=== PATIENT | female | born 1985 | race Hispanic/Latino ===

== ENCOUNTER 2025-05-14 20:44 | Emergency (ER) | payer OTHER ==
[2025-05-14] MEDS ORDERED: IBUPROFEN 400 MG TAB ONE (22:50)
[2025-05-14] MEDS ORDERED: AMOX/K CLAV 875 MG TAB ONE (22:50)
[2025-05-14] MEDS ORDERED: TDAP (DIPHTH,PERTUSS(ACELL),TET VAC) 0.5 ML VIAL IMVAC ONE (22:50)
--- NOTE | 2025-05-14 23:50 | ER ---
Nurse's Notes [facility] Name: Miracle Gonzalez Age: 39 yrs Sex: Female : 1985 Arrival Date: 05/14/2025 Time: 20:44 Bed 11 Private MD: Diagnosis: Puncture wound without foreign body of forearm-left Presentation: 05/14 21:10 Chief complaint: Patient states: [employer] FIGHTING, [employer] BIT dd2 RT FOREARM. PT REPORTS VACCINES UPDATED FOR BOTH DOGS. Coronavirus screen: At this time, the client does not indicate any symptoms associated with coronavirus-19. Ebola Screen: No symptoms or risks identified at this time. Initial Sepsis Screen: Does the patient meet any 2 criteria? No. Patient's initial sepsis screen is negative. Does the patient have a suspected source of infection? No. Patient's initial sepsis screen is negative. Risk Assessment: Do you want to hurt yourself or someone else? Patient reports no desire to harm self or others. Onset of symptoms was May 14, 2025. 21:10 Method Of Arrival: Ambulatory dd2 21:10 Acuity: DELORES 3 dd2 Triage Assessment: 21:17 Bite description: bite sustained to palmar aspect of right forearm by a dog, animal dd2 information: vaccination(s) is current. General: Appears in no apparent distress. uncomfortable, Behavior is calm, cooperative, appropriate for age. Pain: Complains of pain in palmar aspect of right forearm. Injury Description: Bite sustained to palmar aspect of right forearm caused by a dog. Historical: - Allergies: 21:17 Morphine; dd2 - PMHx: 21:17 SVT; dd2 - PSHx: 21:17 Tonsillectomy; dd2 - Immunization history:: Adult Immunizations not up to date, Last tetanus immunization: unknown. - Social history:: Smoking status: Patient denies any tobacco usage or history of. Screenin:35 [facility] ED Fall Risk Assessment (Adult) History of falling in the last 3 months, br2 including since admission No falls in past 3 months (0 pts) Confusion or Disorientation No (0 pts) Intoxicated or Sedated No (0 pts) Impaired Gait No (0 pts) Mobility Assist Device Used No (0 pt) Altered Elimination No (0 pt) Score/Fall Risk Level 0 - 2 = Low Risk Oriented to surroundings. Abuse screen: Denies threats or abuse. Denies injuries from another. Nutritional screening: No deficits noted. Tuberculosis screening: No symptoms or risk factors identified. Assessment: 22:35 Reassessment: Patient and/or family updated on plan of care and expected duration. Pain br2 level reassessed. Patient is alert, oriented x 3, equal unlabored respirations, skin warm/dry/pink. General: Appears in no apparent distress. comfortable, Behavior is calm, cooperative. Neuro: Goodman Agitation-Sedation Scale (RASS): 0 - Alert and Calm Level of Consciousness is awake, alert, obeys commands, Oriented to person, place, time, situation. Derm: Skin PUNCTURE Skin is clammy, Skin is pink, warm \T\ dry. Skin temperature is warm Wound noted palmar aspect of left forearm. 22:35 Reassessment: PT STATES [place] [employer] NOTIFIED. br2 23:30 Reassessment: Patient and/or family updated on plan of care and expected duration. Pain br2 level reassessed. Patient is alert, oriented x 3, equal unlabored respirations, skin warm/dry/pink. Patient states feeling better. Patient states symptoms have improved. 05/15 00:03 Reassessment:. br2 Vital Signs: 05/14 21:10 BP 140 / 94; Pulse 94; Resp 16; Temp 97.7; Pulse Ox 98% ; Weight 113.4 kg; Height 5 ft. dd2 5 in. ; Pain 6/10; 05/15 00:00 BP 129 / 91; Pulse 86; Resp 18; Temp 97.1; Pulse Ox 99% ; Pain 4/10; br2 05/14 21:10 Body Mass Index 41.60 (113.40 kg, 165.1 cm) dd2 05/14 21:10 Pain Scale: Adult dd2 05/15 00:00 Pain Scale: Adult br2 ED Course: 05/14 20:47 Patient arrived in ED. im 21:03 Marcelino Martinez PA-C is PHCP. cp 21:03 Marcelino Cueto MD is Attending Physician. cp 21:17 Triage completed. dd2 21:17 Arm band placed on right wrist. dd2 22:35 Bed in low position. Call light in reach. Side rails up X 1. Provided Education on: br2 plan of care. 22:47 XRAY Forearm LEFT In Process Unspecified. EDMS 23:45 Isi Horn, NABIL is Primary Nurse. br2 05/15 00:02 No provider procedures requiring assistance completed. Patient did not have IV access br2 during this emergency room visit. Administered Medications: 05/14 22:57 Drug: Amoxicillin-Clavulanate PO 875 mg PO once Route: PO; br2 23:30 Follow up: Response: No adverse reaction br2 22:57 Drug: Boostrix Tdap IM 0.5 ml IM once; as a single dose Route: IM; Site: left deltoid; br2 23:30 Follow up: Response: No adverse reaction br2 22:57 Drug: Ibuprofen PO 800 mg PO once Route: PO; br2 23:30 Follow up: Response: No adverse reaction; Pain is decreased br2 Medication: 05/15 00:07 Vaccine Information Statement (VIS) provided today. Questions and/or concerns br2 addressed. VIS edition date: March 09, 2021. Outcome: 05/14 23:50 Discharge ordered by MD. patel 05/15 00:02 Discharged to home ambulatory, br2 Condition: good Discharge instructions given to patient, Instructed on discharge instructions, Demonstrated understanding of instructions, follow-up care, medications, Prescriptions given X 2, 00:07 Patient left the ED. br2 Signatures: Dispatcher [employer] EDTX Marcelino Martinez PA-C PAKerry Chavarria cp, Belinda, RN RN br2 GILBERT DAVIS RN RN dd2 Corrections: (The following items were deleted from the chart) 05/14 21:18 21:17 Allergies: No Known Allergies; dd2 dd2
--- NOTE | 2025-05-14 23:50 | EDPHYS ---
Physician Documentation [facility] Name: Mircale Gonzalez Age: 39 yrs Sex: Female : 1985 Arrival Date: 05/14/2025 Time: 20:44 Bed 11 Private MD: ED Physician Marcelino Cueto HPI: 05/14 22:05 This 39 yrs old Female presents to ER via Ambulatory with complaints of Dog cp Bite. 22:05 The patient was bitten on the ulna side of left forearm, by a dog, while trying to stop cp animals from fighting, at home. 22:05 Onset: The symptoms/episode began/occurred just prior to arrival. Animal information: cp Animal control has been notified. Secondary to the bite the patient reports a puncture wound, that is deep. Associated signs and symptoms: Pertinent positives: bony tenderness, pain at site, swelling at site, tenderness, Pertinent negatives: erythema at site, fever, motor deficit, numbness distal to wound. Severity of symptoms: in the emergency department the symptoms are unchanged, despite home interventions. Historical: - Allergies: 21:17 Morphine; dd2 - PMHx: 21:17 SVT; dd2 - PSHx: 21:17 Tonsillectomy; dd2 - Immunization history:: Adult Immunizations not up to date, Last tetanus immunization: unknown. - Social history:: Smoking status: Patient denies any tobacco usage or history of. ROS: 22:10 MS/extremity: Positive for bite, puncture, of the left forearm, cp 22:10 Eyes: Negative for injury, pain, redness, and discharge, cp 22:10 Constitutional: Negative for body aches, chills, fever, poor PO intake, 22:10 Cardiovascular: Negative for chest pain, palpitations, 22:10 Respiratory: Negative for cough, shortness of breath, wheezing, 22:10 Abdomen/GI: Negative for abdominal pain, nausea, vomiting, and diarrhea, 22:10 Neuro: Negative for altered mental status, headache, numbness, weakness, 22:10 All other systems are negative, Exam: 22:15 Constitutional: The patient appears in no acute distress, alert, awake, non-toxic, well cp developed, well nourished, uncomfortable, 22:15 Head/Face: Normocephalic, atraumatic. cp 22:15 Eyes: Periorbital structures: appear normal, Conjunctiva: normal, no exudate, no injection, Sclera: no appreciated abnormality, Lids and lashes: appear normal, bilaterally, 22:15 ENT: External ear(s): are unremarkable, Nose: is normal, Mouth: Lips: moist, Oral mucosa: moist, Posterior pharynx: Airway: no evidence of obstruction, patent, 22:15 Neck: ROM/movement: is normal, is supple, 22:15 Chest/axilla: Inspection: normal, 22:15 Cardiovascular: Rate: normal, Pulses: Pulses are 2+ in left radial artery. 22:15 Respiratory: the patient does not display signs of respiratory distress, Respirations: normal, no use of accessory muscles, no retractions, labored breathing, is not present, Breath sounds: are clear throughout, no decreased breath sounds, 22:15 Abdomen/GI: Exam negative for discomfort, distension, guarding, Inspection: abdomen appears normal, 22:15 Back: pain, is absent, 22:15 Musculoskeletal/extremity: Extremities: noted in the ulna side of left mid forearm: deep puncture type wound, no active bleeding, mild swelling, ecchymosis, ROM: full active range of motion, in the left wrist and left elbow, the right hand and right arm Sensation intact. 22:15 Neuro: Orientation: to person, place \T\ time. Mentation: is normal, Vital Signs: 21:10 BP 140 / 94; Pulse 94; Resp 16; Temp 97.7; Pulse Ox 98% ; Weight 113.4 kg; Height 5 ft. dd2 5 in. ; Pain 6/10; 05/15 00:00 BP 129 / 91; Pulse 86; Resp 18; Temp 97.1; Pulse Ox 99% ; Pain 4/10; br2 05/14 21:10 Body Mass Index 41.60 (113.40 kg, 165.1 cm) dd2 05/14 21:10 Pain Scale: Adult dd2 05/15 00:00 Pain Scale: Adult br2 MDM: 05/14 21:12 Medical Screening Exam initiated cp 22:00 Differential diagnosis: superficial laceration, tendon injury, vascular injury, rabies, cp cellulitis. 23:50 Data reviewed: vital signs, nurses notes, radiologic studies, plain films, and as a cp result, I will discharge patient. 23:50 I considered the following discharge prescriptions or medication management in the cp emergency department Medications were administered in the Emergency Department. See MAR. Special discussion: I discussed in detail with the patient the higher chance of wound infection based on his presenting history. 23:50 ED course: wound cleaned and dressed by nursing staff. will discharge to home for cp continued monitoring. 05/14 21:59 Order name: XRAY Forearm LEFT cp 05/14 23:36 Order name: Wound dressing; Complete Time: 23:48 cp Administered Medications: 22:57 Drug: Amoxicillin-Clavulanate PO 875 mg PO once Route: PO; br2 23:30 Follow up: Response: No adverse reaction br2 22:57 Drug: Boostrix Tdap IM 0.5 ml IM once; as a single dose Route: IM; Site: left deltoid; br2 23:30 Follow up: Response: No adverse reaction br2 22:57 Drug: Ibuprofen PO 800 mg PO once Route: PO; br2 23:30 Follow up: Response: No adverse reaction; Pain is decreased br2 Disposition Summary: 05/14/25 23:50 Discharge Ordered Notes: Location: Home cp Problem: new cp Symptoms: have improved cp Condition: Stable cp Diagnosis - Puncture wound without foreign body of forearm - left cp Followup: cp - With: Private Physician - When: 2 - 3 days - Reason: Worsening of condition Discharge Instructions: - Discharge Summary Sheet cp - Puncture Wound cp - Animal Bite, Adult cp Forms: - Medication Reconciliation Form cp - Antibiotic Education cp - Prescription Opioid Use cp - Patient Portal Instructions cp - Leadership Thank You Letter cp Prescriptions: - Anaprox DS 550 mg Oral Tablet - take 1 tablet ORAL route every 12 hours As needed; 20 tablet; Refills: 0, cp Product Selection Permitted - Augmentin 875-125 mg Oral Tablet - take 1 tablet ORAL route every 12 hours for 10 days; 20 tablet; Refills: 0, cp Product Selection Permitted Addendum: 05/18/2025 06:54 Co-signature as Attending Physician, Marcelino Cueto MD I agree with the assessment and c soto plan of care. Signatures: Dispatcher [employer] Marcelino Patel MD MD cha Page, Corey, PA-C PA-C Isi Cummings RN RN br2 GILBERT DAVIS RN RN dd2 Corrections: (The following items were deleted from the chart) 05/14 21:18 21:17 Allergies: No Known Allergies; dd2 dd2
[2025-05-15 00:17] VITALS: BP 129/91; TEMP 97.1; O2SAT 99
--- NOTE | 2025-05-15 01:10 | RAD REPORT ---
EXAM DESCRIPTION: Forearm Left CLINICAL HISTORY: 39 years Female ANIMAL BITE COMPARISON: None TECHNIQUE: 2 images of the left forearm were obtained. FINDINGS: No acute fractures seen. No radiopaque foreign body. Normal bony mineralization. No erosive or lytic lesions seen. No definite subcutaneous emphysema. IMPRESSION: No acute fracture or dislocation seen. No radiopaque foreign body. Electronically signed by: Veronica Alfaro MD 05/15/2025 01:07 AM CDT RP Due to temporary technical issues with the [employer] reporting system, reports are being jagruti d by the in-house radiologist without review as a courtesy to ensure prompt reporting the interpreting radiologist is fully responsible for the content of the report. Transcribed Date/Time: 05/15/2025 1:10 AM
== END 2025-05-15 00:07 | disposition home or self-care (01) ==
LOC: ER 20:44
DX: S51.832A Puncture wound without foreign body of left forearm, initial encounter (principal); W54.0XXA Bitten by dog, initial encounter; Z23 Encounter for immunization
CPT/HCPCS: 90715; 96372; 99284